=== PATIENT | male | born 1985 ===

== ENCOUNTER 2016-09-11 09:09 | Emergency (ER) | payer BC ==
[2016-09-11 09:46] VITALS: BP 135/92
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
[2016-09-11 12:38] LABS: Hematocrit 45 % (42-52); Mean Corpuscular HGB Conc 34 g/dl (31-36); Mean Corpuscular Hemoglobin 29 pg (27-31); Mean Corpuscular Volume 85 fL (80-94); Mean Platelet Volume 8 um3 (7.4-10.4); Red Blood Count 5.24 10^6/ul (4.0-5.4); Red Cell Distribution Width 13 % (10.5-15); White Blood Count 8.8 10^3/ul (3.5-10.8)
[2016-09-11 12:44] LABS: Albumin 4.2 g/dL (3.2-5.2); BUN/Creatinine Ratio 11.6 (8-20); Calcium 9.2 mg/dL (8.6-10.3); Globulin 2.5 g/dL (2-4); Potassium 3.9 mmol/L (3.5-5.0); Total Bilirubin 0.3 mg/dL (0.2-1.0); Total Protein 6.7 g/dL (6.4-8.9)
[2016-09-11 14:09] LABS: Erythrocyte Sed Rate 11 mm/Hr (0-14)
== END 2016-09-11 10:34 | disposition home or self-care (01) ==
LOC: UCEAST 09:09
DX: K62.5 Hemorrhage of anus and rectum (principal); R10.13 Epigastric pain; Z87.891 Personal history of nicotine dependence
CPT/HCPCS: 36415; 80053; 85025; 85652; 87045; 87046; 87328; 87329; 87899; 99201; G0463

== ENCOUNTER 2017-01-15 15:14 | Emergency (ER) | payer SELFPAY ==
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
[2017-01-15 17:42] VITALS: BP 135/90
== END 2017-01-15 17:49 | disposition home or self-care (01) ==
LOC: ED 15:14
DX: S40.012A Contusion of left shoulder, initial encounter (principal); V43.62XA Car passenger injured in collision with other type car in traffic accident, initial encounter; Y93.9 Activity, unspecified; Y92.410 Unspecified street and highway as the place of occurrence of the external cause; J45.990 Exercise induced bronchospasm; Z87.891 Personal history of nicotine dependence
CPT/HCPCS: 71250; 99282